=== PATIENT | female | born 1985 | race Caucasian/White ===

== ENCOUNTER 2016-06-07 11:30 | Emergency (ER) | payer OTHER ==
[~2016-06-07] VITALS: Ht 180.3 cm; Wt 136.1 kg
--- NOTE | 2016-06-07 12:12 | ED GI/GU/ABDOMINAL COMPLAINT ---
History of Present Illness General Chief Complaint: Nausea, Vomiting, Diarrhea Stated Complaint: VOMITING X 3HRS, AND L SIDE BODY PAIN Source: patient Exam Limitations: no limitations Vital Signs & Intake/Output Vital Signs & Intake/Output Vital Signs Date Time Temp Pulse Resp B/P Pulse O2 O2 Flow FiO2 Ox Delivery Rate 06/07 1522 98.1 84 15 144/75 98 Room Air Room Air 06/07 1202 Room Air 06/07 1139 97.8 91 16 151/79 100 Room Air Allergies Coded Allergies: NO KNOWN ALLERGIES (12/07/12) Reconcile Medications Norethindrone-E.estradiol-Iron (Lo Loestrin Fe 1-10 Tablet) 1MG-10(24) TABLET 1 TAB PO DAILY BC (Reported) Pantoprazole Sodium 40 MG TABLET.DR 1 TAB PO DAILY GI (Reported) Triage Note: PT TO ED C/O LEFT SIDED ABD PAIN RADIATING TO LEFT SHOULDER AND DOWN BACK. PT STATES THIS HAS HAPPENED ABOUT 3 TIMES IN THE LAST MONTH. C/O CONSTANT NAUSEA. PAIN THIS AM STARTED AFTER EATING TOAST WITH BUTTER. NO PMHX. ON OCP AND RECENT WEIGHT LOSS OF APPROX 40 LBS Triage Nurses Notes Reviewed? yes ? n Is pt currently ? No HPI: Patient presents for evaluation of left-sided abdominal pain that has been intermittent over the past 2 months. Patient states she typically gets the episodes after eating and there is often vomiting that provides some relief. This morning the patient ate toast and water with ice tea and 10-15 minutes thereafter began having a left sided abdominal pain that wrapped up into the left shoulder and around to the left back. She is feeling better currently with only a mild soreness (the more severe pain was sharp in nature. Nothing seems to make it feel better or worse. There has been no associated fever or cold symptoms, no diarrhea or dysuria. No family history of gastrointestinal disorders. Past History Travel History Traveled to [place] past 21 day No Medical History Any Pertinent Medical History? 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 No Review of Systems Review of Systems Constitutional: Reports: no symptoms. EENTM: Reports: no symptoms. Respiratory: Reports: no symptoms. Cardiovascular: Reports: no symptoms. GI: Reports: see HPI. Genitourinary: Reports: no symptoms. Musculoskeletal: Reports: no symptoms. Skin: Reports: no symptoms. Neurological/Psychological: Reports: no symptoms. Hematologic/Endocrine: Reports: no symptoms. Immunologic/Allergic: Reports: no symptoms. All Other Systems: Reviewed and Negative Physical Exam Physical Exam Gastrointestinal: SEE BELOW Comments: Gen.: Well-nourished, well-developed, no acute respiratory distress. Head: Normocephalic, atraumatic. Eyes: Normal inspection bilaterally Ears: Normal inspection bilaterally Nose: Normal inspection Throat/mouth : Moist mucosa Neck: Supple, full range of motion, no goiter Heart: Regular rate and rhythm, no murmurs rubs or gallops Lungs: Clear to auscultation bilaterally with normal air entry Chest: Nontender Back: Normal range of motion, nontender to percussion (patient's left flank pain became more severe with lying down) Abdomen: Soft, right upper quadrant, epigastric and left upper quadrant abdominal tenderness with facial grimace but otherwise no rebound or guarding, nondistended, normal bowel sounds Extremities: Normal range of motion grossly, equal radial pulses Neurologic: Cranial nerves grossly intact, speech is clear Skin: warm and dry Psychiatric: Calm, cooperative, no apparent delusions or hallucinations Core Measures ACS in differential dx? No Severe Sepsis Present: No Septic Shock Present: No Progress Differential Diagnosis: biliary colic, cholecystitis, diverticulitis, gastritis, hepatitis, inflamm bowel dis, kidney stone, pancreatitis, peptic ulcer, PUD/GERD , UTI/pyelo Plan of Care: Orders Procedure Date/time Status Add-on Test (ER Only) 06/07 1331 Active HUMAN BETA HCG SCREEN 06/07 1237 Complete LIPASE 06/07 1212 Complete COMPREHENSIVE METABOLIC PANEL 06/07 1212 Complete CBC WITHOUT DIFFERENTIAL 06/[address] ABD & PELVIS W/O IV CONTRAS 06/07 1212 Active URINE 06/07 1133 Active URINALYSIS 06/07 1133 Active Laboratory Tests 06/07/16 1237: Anion Gap 13, Estimated GFR > 60, BUN/Creatinine Ratio 16.7, Glucose 96, Calcium 9.8, Total Bilirubin 1.2, AST 55 H, ALT 37, Alkaline Phosphatase 110, Total Protein 7.8, Albumin 4.0, Globulin 3.8, Albumin/Globulin Ratio 1.1, Lipase 66, Total Beta HCG NEGATIVE, CBC w Diff MAN DIFF ORDERED, RBC 4.97, MCV 83.3, MCH 27.1, RDW 14.3, MPV 8.1, Gran % 84.4 H, Lymphocytes % 9.6 L, Monocytes % 4.1, Eosinophils % 1.5, Basophils % 0.4, Absolute Granulocytes 12.4 H, Absolute Lymphocytes 1.4, Absolute Monocytes 0.6, Absolute Eosinophils 0.2, Absolute Basophils 0.1, Platelet Estimate INCREASED, Normocytic RBCs VERIFIED, Normochromic RBCs VERIFIED, PUBS MCHC 32.5 L Initial ED EKG: none Comments: 06/07/2016 3:43:14 PM I've just been provided a copy of this patient's CAT scan report is her seems to be an issue with the reports being downloaded into the system. The clinical impression from Marcia Rhodes MD is #1 cholelithiasis with no evidence of acute cholecystitis or biliary obstruction. #2 no acute findings seen. Departure Departure Disposition: HOME OR SELF CARE Condition: Stable Clinical Impression Primary Impression: Biliary colic Secondary Impressions: Gallstones Referrals: SOFÍA THOMPSON,DUY NICHOLS MD,VALDO (PCP/Family) Additional Instructions: Follow-up with the general surgeon listed for reevaluation of your abdominal pains and whether or not you should have your gallbladder removed. Notify your primary care doctor of this emergency department visit and treatment plan. Zofran as needed for nausea or vomiting, [place] as needed for pain. Return if any concerns or sudden worsening. Please note that there might be incidental findings in your evaluation that are unrelated to the current emergency department visit. Please notify your primary care doctor about this emergency department visit in order to obtain and review all of the testing performed so that these incidental findings can be monitored as needed. If you had an x-ray performed, please understand that some fractures may not be seen on the initial set of x-rays. If your symptoms persist you might need a repeat set of x-rays to check for such a fracture. If you had a laceration evaluated, please understand that foreign bodies such as glass or wood may not be visible to the naked eye or on plain x-rays. If the wound becomes red, swollen, increasingly more painful or if there is any drainage from the wound, please have it reevaluated by a physician for the possibility of a retained foreign body. Thank you for choosing the [facility] Emergency Department for your care. It was a pleasure to serve you today. Boni Story M.D. [facility] Departure Forms: Customer Survey General Discharge Information Prescriptions: Current Visit Scripts Ondansetron (Zofran Odt) 1 TAB SL Q6P PRN NAUSEA/VOMITING #10 TAB Hydrocodone/Acetaminophen ([place] 5-325 Tablet) 1-2 TAB PO Q6P PRN PAIN #20 TAB
[2016-06-07] MEDS ORDERED: LO LOESTRIN FE1 EACH PO (12:30)
[2016-06-07] MEDS ORDERED: PANTOPRAZOLE SO40 M1 PO (12:30)
[2016-06-07 12:54] LABS: ABSOLUTE BASOPHIL COUNT 0.1 /CUMM (0.0-0.2); ABSOLUTE EOSINOPHIL COUNT 0.2 /CUMM (0.0-0.7); ABSOLUTE GRANULOCYTE CT 12.4 /CUMM (1.4-6.5); ABSOLUTE LYMPH COUNT 1.4 /CUMM (1.2-3.4); ABSOLUTE MONOCYTE COUNT 0.6 /CUMM (0.10-0.60); BASOPHIL % 0.4 % (0.0-2.0); EOSINOPHIL % 1.5 % (0-5); GRANULOCYTE % 84.4 % (42.2-75.2); HEMATOCRIT 41.5 % (37-47); MEAN CORPUSCULAR HGB 27.1 PG (27.0-31.0); MEAN CORPUSCULAR HGB CONC 32.5 G/DL (33.0-37.0); MEAN CORPUSCULAR VOLUME 83.3 FL (81.0-99.0); MEAN PLATELET VOLUME 8.1 FL (7.4-10.4); PLATELET COUNT 546 /CUMM (130-400); RBC DISTRIBUTION WIDTH 14.3 % (11.5-14.5); RED BLOOD CELL CT 4.97 /CUMM (4.20-5.40); WHITE BLOOD CELL COUNT 14.8 /CUMM (4.8-10.8)
[2016-06-07 15:22] VITALS: BP 144/75
[2016-06-07] MEDS ORDERED: ZOFRAN ODT4 M1 SL (16:19)
[2016-06-07] MEDS ORDERED: NORCO 5-325 TA1 EACH PO (16:19)
--- NOTE | 2016-06-11 09:05 | CT SCAN REPORT ---
EXAMINATION: CT ABDOMEN AND PELVIS WITHOUT CONTRAST CLINICAL INFORMATION: Bilateral upper quadrant pain and tenderness radiating to left flank. Presumptive diagnosis of biliary colic, pancreatitis, diverticulitis, hypersplenism, pyelonephritis. COMPARISON: CT scan of the abdomen and pelvis dated 12/09/2012. Ultrasound of the abdomen dated 10/03/2010 and 03/22/2008. TECHNIQUE: Multidetector volumetric imaging was performed from the superior aspect of the liver through the pubic symphysis. Sagittal and coronal reformatted images were obtained on the technologist workstation. DLP: 1625.43 mGy-cm. FINDINGS: LUNG BASES: The visualized lung bases are unremarkable. LIVER, GALLBLADDER, AND BILIARY TREE: The liver is normal in size, shape, and attenuation. No focal hepatic lesion on noncontrast imaging. No biliary ductal dilatation is present. The gallbladder is shows small hyperdense gallstones in the dependent fundus. No evidence of gallbladder wall thickening or obvious pericholecystic inflammatory changes. PANCREAS, SPLEEN, ADRENAL GLANDS: Unremarkable on noncontrast imaging. Specifically, pancreas appears unremarkable with no evidence of acute pancreatitis on imaging. KIDNEYS AND URETERS: The kidneys are normal in size, shape, and attenuation. No hydronephrosis, hydroureter, or calculi seen. No perinephric stranding. BLADDER: Decompressed and suboptimally assessed, but grossly unremarkable. GASTROINTESTINAL TRACT: The small and large bowel are unremarkable. No significant colonic diverticula. The appendix is unremarkable. ABDOMINAL WALL: No significant hernia is appreciated. LYMPH NODES, VASCULAR: Unremarkable. PELVIC VISCERA: Unremarkable. OSSEOUS STRUCTURES: Mild degenerative facet arthropathy seen in the lower lumbar spine. Pseudoarthrosis of the left L5 transverse process with the sacrum is seen. IMPRESSION: 1. Cholelithiasis with no evidence of acute cholecystitis or biliary obstruction. 2. No acute findings seen.
== END 2016-06-07 16:40 ==
LOC: ERH
PROVIDERS: Emergency Medicine
DX: K80.70 Calculus of gallbladder and bile duct without cholecystitis without obstruction (principal)
CPT/HCPCS: 74176; 81025